=== PATIENT | male | born 1990 | race African-American/Black ===

== ENCOUNTER → 2019-07-06 | Outpatient (CLI) | payer OTHER ==
[~2019-07-06] MED LIST: CYCL10TA9 PO; NAPR-243 PO; TRAM-21 PO; TRAM50TA2 PO
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
== END ==
LOC: RAD 09:35
PROVIDERS: ATTEND Internal Medicine
DX: M51.17 Intervertebral disc disorders with radiculopathy, lumbosacral region (principal); M48.061 Spinal stenosis, lumbar region without neurogenic claudication; V89.2XXA Person injured in unspecified motor-vehicle accident, traffic, initial encounter
CPT/HCPCS: 72148

== ENCOUNTER 2020-02-18 16:15 | Emergency (ER) | payer OTHER ==
[~2020-02-18] VITALS: Ht 170 cm; Wt 63.5 kg
[~2020-02-18 16:15] MED LIST changes: -TRAM50TA2 PO; +TRM50T PO
--- NOTE | 2020-02-18 16:24 | ED Upper Extremity ---
General Chief Complaint: Upper Extremity Stated Complaint: LEFT HAND SWOLLEN Source: patient History of Present Illness Date Seen by Provider: Feb 18, 2020 Time Seen by Provider: 16:24 Initial Comments 29-year-old male presents with left hand swelling. Patient indicates that he fell 2 days ago on his left hand. He reports he fell on concrete. Has pain more on the medial aspect on the dorsal surface. He denies any other injury. He reports he comes today because it continues to be swollen and painful. Allergies and Home Medications Allergies Coded Allergies: No Known Drug Allergies (Verified Allergy, Unknown, 10/21/09) Uncoded Allergies: NKDA (Allergy, Mild, 05/09/09) Home Medications Cyclobenzaprine HCl 10 Mg Tablet, 10 MG PO Q8H PRN for SPASMS Prescribed by: LUIS ALBERTO LOMELI on 05/05/161825 Hydrocodone/Acetaminophen 1 Each Tablet, 1 EACH PO Q8H Prescribed by: ANKUSH YOUNG on 02/18/20 170 Tramadol HCl 50 Mg Tablet, 50 MG PO Q4H PRN for PAIN Prescribed by: LUIS ALBERTO LOMLEI on 05/05/161825 Patient Home Medication List Home Medication List Reviewed: Yes Review of Systems Constitutional: no symptoms reported EENTM: no symptoms reported Respiratory: no symptoms reported Genitourinary: no symptoms reported Musculoskeletal: see HPI Past Gddssaw-Vqmtsv-Vnsoij Hx Past Med/Social Hx: Reviewed Nursing Past Med/Soc Hx Past Medical History Reproductive Disorders: No Sexually Transmitted Disease: No Family Medical History No Pertinent Family Hx Physical Exam Vital Signs Vital Signs - First Documented 02/18/20 16:22 Temp 36.7 Pulse 97 Resp 20 B/P (MAP) 114/76 (89) Pulse Ox 100 O2 Delivery Room Air Capillary Refill : Height, Weight, BMI Height: 6'0.00" Weight: 150lbs. oz. [id number]; BMI Method:Stated General Appearance: WD/WN, no apparent distress Neck: full range of motion Cardiovascular: regular rate, rhythm, no edema Respiratory: no respiratory distress, no accessory muscle use Gastrointestinal: No distended Hand: Left, swelling Neurologic/Psychiatric: alert, normal mood/affect, oriented x 3 Progress/Results/Core Measures Results/Orders My Orders Orders - ANKUSH YOUNG DO Hand, Left, 3 Views (02/18/20 16:25) Ortho Glass (02/18/20 16:49) Vital Signs/I&O 02/18/20 16:22 Temp 36.7 Pulse 97 Resp 20 B/P (MAP) 114/76 (89) Pulse Ox 100 O2 Delivery Room Air Progress Progress Note : Time: 16:51 Progress Note X-ray shows a proximal left metacarpal fracture. Patient will be splinted. Dis cussed with him need to follow-up with or so for possible surgery. Patient was instructed to call orthopedic surgeon of his choice tomorrow for further outpatient follow-up. Departure Impression Primary Impression: Displaced fracture of base of fifth metacarpal bone, left hand, initial encounter for closed fracture Disposition: HOME, SELF-CARE Condition: Stable Departure-Patient Inst. Referrals: NO,LOCAL PHYSICIAN (PCP) Primary Care Physician SHILO ENRIQUE MD Please call Wednesday for follow-up time for further evaluation Patient Instructions: Hand Fracture (DC) Add. Discharge Instructions: Please call orthopedic surgeon Wednesday morning for a follow-up time for further evaluation and treatment All discharge instructions reviewed with patient and/or family. Voiced understanding. Scripts Hydrocodone/Acetaminophen (Hydrocodone-Acetamin 5-325 mg) 1 Each Tablet 1 EACH PO Q8H, #8 TAB Prov: ANKUSH YOUNG DO 02/18/20 ANKUSH YOUNG DO Feb 18, 2020 16:24
[2020-02-18] MEDS ORDERED: HYDR-83 PO (17:00)
--- NOTE | 2020-02-18 17:08 | Diagnostic Imaging Report ---
EXAM: Hand, left, 3 views. INDICATION: Fall. Left hand swelling. COMPARISON: None. FINDINGS: Impacted fracture of the proximal left 5th metacarpal likely involves the articular surface. No other fracture. No radiopaque foreign body. IMPRESSION: Impacted fracture of the proximal left 5th metacarpal with probable involvement of the articular surface. Dictated by: Dictated on workstation # [id number]
[2020-02-18 17:17] VITALS: BP 114/76
== END 2020-02-18 17:17 | disposition home or self-care (01) ==
LOC: EDUNIT# 16:15 → ER 16:17
DX: S62.398A Other fracture of other metacarpal bone, initial encounter for closed fracture (principal); W19.XXXA Unspecified fall, initial encounter
CPT/HCPCS: 29125; 73130